=== PATIENT | male | born 1955 | race Caucasian/White ===

== ENCOUNTER → 2019-12-30 10:43 | Outpatient (BNVA) | payer BC, SELFPAY | PROVIDERS: Family Provider Nurse Practitioner Family; PCP Family Medicine; Referring Provider Family Medicine; Visit Provider Family Medicine | DX: E78.2 Mixed hyperlipidemia (principal); I10 Essential (primary) hypertension; Z68.25 Body mass index [BMI] 25.0-25.9, adult | CPT/HCPCS: 80053; 80061; 85025 ==

== ENCOUNTER → 2021-01-13 12:31 | Outpatient (BNVA) | payer BC, SELFPAY | PROVIDERS: Family Provider Nurse Practitioner Family; PCP Family Medicine; Visit Provider Family Medicine | DX: Z00.00 Encounter for general adult medical examination without abnormal findings (principal); E78.2 Mixed hyperlipidemia; I10 Essential (primary) hypertension | CPT/HCPCS: 80053; 80061; 85025 ==

== ENCOUNTER 2021-07-21 09:40 | Outpatient (CLI) | payer BC, SELFPAY ==
--- NOTE | 2021-07-21 09:45 | USCV_ITS ---
Michele Pyle Age: 66 Gender: M : 1955 Exam Date: 07/21/2021 10:15 Ordering Phys: Amanuel Murillo MD Technologist: Anisha Carpenter Exam Location: [facility] – [place] Indication: RLE SWELLING HISTORY: Lower extremity swelling. PROCEDURES: Venous duplex imaging was performed in only the right lower extremity. The following venous structures were evaluated: common femoral vein, profunda vein, proximal portion of the greater saphenous vein, superficial femoral vein, and the popliteal vein. In addition, the posterior tibial and peroneal trunk were evaluated. Serial compression, augmentation maneuvers, and spectral Doppler flow evaluation were performed. FINDINGS: No evidence of DVT seen in any vessel visualized at this time. CONCLUSIONS No evidence of right lower extremity DVT. Kurt Serrano MD (Electronically Signed) Final Date: 21 July 2021 11:43 S
== END 2021-07-21 09:41 | disposition home or self-care (01) ==
LOC: RAD 09:46
PROVIDERS: PCP Family Medicine; Visit Provider Family Medicine
DX: M79.89 Other specified soft tissue disorders (principal); M17.11 Unilateral primary osteoarthritis, right knee
CPT/HCPCS: 85025; 85651; 86140; 93971

== ENCOUNTER → 2021-08-05 09:31 | Outpatient (BNVA) | payer BC, SELFPAY | PROVIDERS: PCP Family Medicine; Visit Provider Family Medicine | DX: M17.11 Unilateral primary osteoarthritis, right knee (principal) | CPT/HCPCS: 84550; 85651; 86140 ==

== ENCOUNTER → 2022-02-22 10:31 | Outpatient (BNVA) | payer MEDICARE, SELFPAY | PROVIDERS: PCP Family Medicine; Visit Provider Emergency Medicine | DX: R50.9 Fever, unspecified (principal); U07.1 COVID-19; J12.82 Pneumonia due to coronavirus disease 2019 | CPT/HCPCS: 87426 ==

== ENCOUNTER → 2023-01-19 10:44 | Outpatient (BNVA) | payer MEDICARE, SELFPAY | PROVIDERS: PCP Family Medicine; Visit Provider Family Medicine | DX: I10 Essential (primary) hypertension (principal) | CPT/HCPCS: 80053; 85025 ==

== ENCOUNTER → 2024-08-06 12:29 | Outpatient (BNVA) | payer MEDICARE, SELFPAY | PROVIDERS: PCP Family Medicine; Visit Provider Family Medicine | DX: I10 Essential (primary) hypertension (principal); E78.2 Mixed hyperlipidemia; J01.30 Acute sphenoidal sinusitis, unspecified | CPT/HCPCS: 80053; 80061; 85025 ==

== ENCOUNTER 2024-10-02 06:52 | Outpatient (CLI) | payer MEDICARE, OTHER, SELFPAY ==
--- NOTE | 2024-10-02 07:15 | MR_ITS ---
WS: [id number] MRI BRAIN WITHOUT CONTRAST HISTORY: continued severe left side headache and elevated blood press COMPARISON: None available. TECHNIQUE: Diffusion imaging, multiplanar T1, T2 and FLAIR imaging obtained. Normal diffusion imaging. No acute infarct. Moderate symmetric volume loss and small vessel ischemic disease. T2 and FLAIR signal hyperintensities in the subcortical and periventricular white matter. No prior infarct. There is also volume loss in the cerebellum. No remote infarct. Ventricles and extra-axial spaces are normal. No inferior displacement of cerebellar tonsils. The sella turcica and pituitary gland are unremarkable. Dural venous sinuses and chinik of [place] demonstrate no abnormality on this unenhanced studies. Paranasal sinuses: Clear. Mastoid air cells: Normal. Calvarium and scalp: Intact. MR/MR head wo con* [id number] IMPRESSION: 1. No acute infarct or remote infarct. 2. Moderate volume loss and small vessel disease. 3. No prior hemorrhage.
== END 2024-10-02 06:53 | disposition home or self-care (01) ==
LOC: RAD 06:54
PROVIDERS: PCP Family Medicine; Visit Provider Family Medicine
DX: G50.0 Trigeminal neuralgia (principal); I10 Essential (primary) hypertension; G31.89 Other specified degenerative diseases of nervous system; I67.82 Cerebral ischemia
CPT/HCPCS: 70551

== ENCOUNTER 2025-04-24 08:03 | Emergency (ER) | payer MEDICARE, OTHER, SELFPAY ==
[2025-04-24 08:10] VITALS: BP 170/92; PULSE 76; RESP 16; TEMP 36.9; O2SAT 96; BMI 26.6
--- NOTE | 2025-04-24 08:44 | ECG_ITS ---
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 Measurements Intervals [place] Rate: 89 P: 68 AL: 130 QRS: 66 QRSD: 98 T: 68 QT: 314 QTc: 383 Interpretive Statements SINUS RHYTHM WITH FREQUENT VENTRICULAR PREMATURE COMPLEXES POSSIBLE LEFT ATRIAL ENLARGEMENT [-0.1mV P-WAVE IN V1/V2] NONSPECIFIC T-WAVE ABNORMALITY ABNORMAL RHYTHM ECG Electronically Signed On 04-24-2025 08:51:31 CDT by Nikhil Jacobsen M.D. [email or web address]
--- NOTE | 2025-04-24 08:44 | XRR_ITS ---
PROCEDURE INFORMATION: Exam: XR Chest Exam date and time: 04/24/2025 8:51 AM Age: 69 years old Clinical indication: Other: Syncope TECHNIQUE: Imaging protocol: Radiologic exam of the chest. Views: 1 view. COMPARISON: No relevant prior studies available. FINDINGS: Lungs: Patchy airspace disease in the right lower and left mid lung zones. Pleural spaces: Unremarkable. No pleural effusion. No pneumothorax. Heart/Mediastinum: Unremarkable. No cardiomegaly. Bones/joints: Unremarkable. XR/XR chest 1V portable [id number] IMPRESSION: Patchy airspace disease in the right lower and left mid lung zones. Suspected multifocal pneumonia. Correlate clinically.
--- NOTE | 2025-04-24 09:04 | W.ED.SYNCOPE ---
HPI - Syncope General: Chief Complaint: Syncope Stated Complaint: loss of cons (swallowed diesel) Time Seen by Provider: 04/24/25 08:23 History of Present Illness: 69-year-old male presents emergency room stating while working on some machinery last night he was trying to suction fuel through alignment with his mouth. He aspirated some of the diesel fuel. He coughed and spidered states that it took his breath away . This morning he has cough and shortness of breath. He has been a little bit dizzy. Cough has been nonproductive. No hemoptysis. Associated symptoms: Deny abdominal pain, chest pain or fever(s) Related Data Previous Rx's ?Medication ?Instructions ?Recorded lisinopril 40 mg tablet See Rx Instructions .Route 09/27/24 .COMPLEX #180 tabs amlodipine 5 mg tablet 5 mg PO BID #180 tabs 10/01/24 gabapentin 100 mg capsule 200 mg (2 x 100 mg) PO TID PRN 03/07/25 trigeminal/facial nerve pain #180 caps hydrocodone 5 mg-acetaminophen 325 1 tab PO Q12H PRN pain 30 days #60 03/07/25 mg tablet tabs albuterol sulfate 90 mcg/actuation 2 inh inhalation Q4H PRN shortness 04/24/25 aerosol inhaler of breath or wheezing #18 grams amoxicillin 875 mg-potassium 1 tab PO BID #14 tabs 04/24/25 clavulanate 125 mg tablet Allergies Allergy/AdvReac Type Severity Reaction Status Date / Time No Known Allergies Allergy Verified 04/30/25 09:37 Review of Systems Const: Denies: fever(s) or chills Card: Denies: chest pain Resp: Reports: dyspnea and non-productive cough GI: Denies: abdominal pain : Denies: dysuria, urinary frequency or urinary urgency Musc: Denies: neck pain or back pain Skin/Breast: Denies: rash PFSH ED PFSH: Medical History Osteoarthritis of right knee Hypertension Mixed hyperlipidemia Social History Smoking and tobacco/nicotine status: never used tobacco/nicotine Alcohol intake: current Alcohol intake frequency: holidays/special occasions only Substance/Drug Use: never Physical Exam Const: COMMON NORMALS: no acute distress GENERAL APPEARANCE: cooperative and comfortable ORIENTATION/CONSCIOUSNESS: Yes awake, Yes oriented to person, Yes oriented to place and Yes oriented to time HENMT: COMMON NORMALS: normocephalic, atraumatic and hearing grossly normal bilaterally HEAD & SCALP: normocephalic and atraumatic Resp: COMMON NORMALS: normal respiratory effort, No retractions and No use of accessory muscles AUSCULTATION: rhonchi Cardio: COMMON NORMALS: regular rate, regular rhythm and No murmurs present (Cardio) RATE: regular rate RHYTHM: regular rhythm GI: COMMON NORMALS: Soft to palpation and No hepatosplenomegaly present AUSCULTATION: Yes normoactive bowel sounds PALPATION: Yes Soft to palpation, No Tenderness to palpation present (GI), No Guarding due to palpation present (GI) and Yes No hepatosplenomegaly present Extremity: COMMON NORMALS: normal to inspection, capillary refill normal, no clubbing, cyanosis or edema, no calf tenderness and no pedal edema Neuro: SENSORIUM/ORIENTATION: Yes oriented to person, Yes oriented to place and Yes oriented to time Skin: COMMON NORMALS: no rashes or lesions noted GENERAL SKIN EXAM: no rashes or lesions noted Course Vital Signs: Vital signs: Vital Signs Temperature 98.4 F 04/24/25 08:10 Pulse Rate 89 04/24/25 10:34 Respiratory Rate 16 04/24/25 10:34 Blood Pressure 108/69 04/24/25 10:34 Pulse Oximetry 93 04/24/25 10:34 Oxygen Delivery Me thod Room Air 04/24/25 10:31 MDM - Syncope Medical Decision Making Patient has EKG findings combined with his history suggestive of pneumonia suspect this is a chemical pneumonitis pneumonitis some aspiration. I suggested to him we placed him on observation. He prefers to go home he is otherwise well his oxygen saturations are at the lower end of normal but he still maintaining them well we will start him on Augmentin as well as albuterol to use as needed patient reports that he has a O2 sat monitor at home. He should continue to monitor this if his sats are consistently below 92% while at rest he needs to return to the emergency room if he develops fever or worsening shortness of breath or productive cough he needs to be seen again in the emergency room. Encourage patient to be seen by his primary care doctor within a week to have a repeat chest x-ray. Medical Records I reviewed the patient's medical records. Lab Data I reviewed the patient's lab results. 04/24/25 09:01 04/24/25 09:01 Radiology Impressions Chest X-Ray 04/24/25 08:44 IMPRESSION: Patchy airspace disease in the right lower and left mid lung zones. Suspected multifocal pneumonia. Correlate clinically. Laboratory Results WBC 27.60 10^3/uL (3.29-11.43) H 04/24/25 09:01 RBC 5.37 10^6/uL (3.85-5.65) 04/24/25 09:01 Hgb 16.00 g/dL (11.27-16.99) 04/24/25 09: Hct 46.8 % (37-53) 04/24/25 09: MCV 87.2 fl (82-101) 04/24/25 09: MCH 29.8 pg (27-33) 04/24/25 09: MCHC 34.2 g/dL (30-55) 04/24/25 09:01 RDW 14.2 % (12.1-15.1) 04/24/25 09:01 Plt Count 283 10^3/cmm (157-399) 04/24/25 09:01 MPV 10.7 fL (7.4-10.4) H 04/24/25 09:01 Neut % (Auto) 86.1 % 04/24/25 09: Lymph % (Auto) 5.5 % 04/24/25 09: [place] % (Auto) 7.5 % 04/24/25 09: Eos % (Auto) 0.0 % 04/24/25 09:01 Baso % (Auto) 0.4 % 04/24/25 09:01 Neut # (Auto) 23.77 10^3/uL (1.8-7.7) H 04/24/25 09:01 Lymph # (Auto) 1.5 10^3/uL (0.8-4.8) 04/24/25 09:01 [place] # (Auto) 2.1 10^3/uL (0.2-0.9) H 04/24/25 09:01 Eos # (Auto) 0.0 10^3/uL (0.0-0.8) 04/24/25 09:01 Baso # (Auto) 0.1 10^3/uL (0.0-0.1) 04/24/25 09:01 Nucleated RBC % (auto) 0 % 04/24/25 09:01 Nucleated RBCs # 0.0 /100WBC 04/24/25 09:01 Sodium 136 mmol/L (136-145) 04/24/25 09:01 Potassium 4.9 mmol/L (3.5-5.1) 04/24/25 09:01 Chloride 99 mmol/L (98-107) 04/24/25 09:01 Carbon Dioxide 22 mmol/L (22-29) 04/24/25 09:01 Anion Gap 19.9 (5-19) H 04/24/25 09:01 BUN 16 mg/dL (8-23) 04/24/25 09:01 Creatinine 1.0 mg/dL (0.7-1.2) 04/24/25 09: GFR Calculation 73.9 mL/min (90-130) L 04/24/25 09:01 Glucose 124 mg/dL (65-115) H 04/24/25 09:01 Calculated Osmolality 285 mOsm/kg (285-295) 04/24/25 09:01 Calcium 9.4 mg/dL (8.5-10.5) 04/24/25 09:01 Total Bilirubin 0.9 mg/dL (0.15-1.2) 04/24/25 09:01 AST 19 U/L (0-40) 04/24/25 09: ALT 25 U/L (0-41) 04/24/25 09:01 Alkaline Phosphatase 132 U/L (40-130) H 04/24/25 09:01 Troponin T Baseline 13 ng/L (0-15) 04/24/25 09:01 Total Protein 6.7 g/dL (6.6-8.7) 04/24/25 09:01 Albumin 4.5 g/dL (3.5-5.2) 04/24/25 09:01 Globulin 2.2 g/dL (1.3-4.6) 04/24/25 09:01 All radiology interpretation(s) finalized by discharge Discharge Plan Discharge Patient Disposition: Home Clinical Impression: Chemical pneumonitis Aspiration pneumonia Qualifiers: Aspiration pneumonia type: unspecified Laterality: right Lung location: middle lobe of lung Qualified Code(s): J69.0 - Pneumonitis due to inhalation of food and vomit Condition: Stable Prescriptions: New albuterol sulfate 90 mcg/actuation HFA aerosol inhaler 2 inh INHALATION Q4H PRN (Reason: shortness of breath or wheezing) Qty: 18 0RF amoxicillin-pot clavulanate 875-125 mg tablet 1 tab PO BID Qty: 14 0RF No Action amlodipine 5 mg tablet 5 mg PO BID Qty: 180 3RF lisinopril 40 mg tablet See Rx Instructions .ROUTE .COMPLEX Qty: 180 3RF Dose Instruction: TAKE 1 TABLET BY MOUTH TWICE DAILY Rx Instructions: TAKE 1 TABLET BY MOUTH TWICE DAILY gabapentin 100 mg capsule 200 mg PO TID PRN (Reason: trigeminal/facial nerve pain) Qty: 180 1RF hydrocodone-acetaminophen 5-325 mg tablet 1 tab PO Q12H PRN (Reason: pain) 30 Days Qty: 60 0RF Discharge Orders: Discharge ED (Routine); Ordered 04/24/25 Ordered By: Mo Jalloh Referrals: Amanuel Murillo MD [Primary Care Provider, Family Practice] Discharge Diet: Usual diet Discharge Activity: Increase activity as tolerated Patient Instructions: Opioid Safety, Pain Management, Patient Portal & Clemencia Instructions Activity Restrictions/Additional Instructions: Thank you for choosing [facility] for your healthcare needs today. It is very important that you follow up as instructed or that you return to the Emergency Department should you have concerns or if your condition changes or worsens in any way. Emergency department visits are focused on emergent conditions, in some cases you may require further evaluation on an outpatient basis. You were seen in the emergency room after inhaling diesel fuel last night. Chest x-ray shows aspiration pneumonia. Your white count is markedly elevated this is likely from the chemical exposure. We had discussed possibly staying you it preferred to be treated as an outpatient. Monitor your oxygen saturations at home as we discussed if it is consistently below 90 you should be reevaluated or if you have marked worsening of your breathing. Recommend that you start oral steroids this evening and also start oral antibiotics. Return to the emergency room if you have any worsening of your condition. If you do feel like things are improving, and do not need to return to the ER, you should still have a follow-up chest x-ray with your primary care doctor next week. (Please note that included in your discharge packet is information concerning opioid safety and pain management. This information is given to all patients were discharged from the ER regardless of their discharge diagnosis or the medicines they usually take or are prescribed.) Print Language: Uzbek Coding Level of Care Code ED Fws Faculty Assistant for Aracely Castanon
[2025-04-24 09:06] LABS: Hematocrit 46.8 % (37-53); Hemoglobin 16.00 g/dL (11.27-16.99); Mean Corpuscular HGB Conc 34.2 g/dL (30-55); Mean Corpuscular Hemoglobin 29.8 pg (27-33); Mean Corpuscular Volume 87.2 fl (82-101); Nucleated Red Blood Cells % 0 %; Platelet Count 283 10^3/cmm (157-399); Red Blood Count 5.37 10^6/uL (3.85-5.65); White Blood Count 27.60 10^3/uL (3.29-11.43)
[2025-04-24 09:25] LABS: Troponin(5th) Baseline 13 ng/L (0-15)
[2025-04-24 09:26] LABS: Alanine Aminotransferase 25 U/L (0-41); Albumin Level 4.5 g/dL (3.5-5.2); Alkaline Phosphatase 132 U/L (40-130); Aspartate Amino Transferase 19 U/L (0-40); Blood Urea Nitrogen 16 mg/dL (8-23); Calcium 9.4 mg/dL (8.5-10.5); Carbon Dioxide 22 mmol/L (22-29); Chloride 99 mmol/L (98-107); Creatinine Clr Calc Pharmacy 66.3223; Globulin 2.2 g/dL (1.3-4.6); Glucose 124 mg/dL (65-115); Osmolality Calculated 285 mOsm/kg (285-295); Sodium 136 mmol/L (136-145); Total Protein 6.7 g/dL (6.6-8.7)
[2025-04-24 09:32] LABS: Anion Gap 19.9 (5-19); Potassium 4.9 mmol/L (3.5-5.1)
[2025-04-24 10:31] VITALS: PULSE 91; RESP 16; O2SAT 93
[2025-04-24 10:34] VITALS: BP 108/69; PULSE 89; RESP 16; O2SAT 93
== END 2025-04-24 10:41 | disposition home or self-care (01) ==
PROVIDERS: Emergency Provider Family Medicine; PCP Family Medicine
DX: T52.0X1A Toxic effect of petroleum products, accidental (unintentional), initial encounter (principal); J68.0 Bronchitis and pneumonitis due to chemicals, gases, fumes and vapors; J69.0 Pneumonitis due to inhalation of food and vomit; I10 Essential (primary) hypertension; E78.2 Mixed hyperlipidemia; X58.XXXA Exposure to other specified factors, initial encounter
CPT/HCPCS: 36415; 71045; 80053; 84484; 85025; 93005; 94640; 96372; 99285; J1100; J9999

== ENCOUNTER 2025-04-30 10:19 | Outpatient (CLI) | payer MEDICARE, OTHER, SELFPAY ==
--- NOTE | 2025-04-30 10:47 | XR_ITS ---
WS: [id number] PA and lateral chest, 04/30/2025 Clinical Data: f/u from ER/ aspiration/chemical pneumonitis Comparison: Portable chest, 04/24/2025 Findings: There is a patchy right middle lobe opacity which probably represents pneumonia. No nodules, masses or effusions are seen. The heart is normal. The aortic arch and descending thoracic aorta show mild tortuosity. The pulmonary vascularity is normal. No pneumothorax is present. XR/XR chest 2V* [id number] Impression: Right middle lobe opacity most consistent with pneumonia.
== END 2025-04-30 10:20 | disposition home or self-care (01) ==
PROVIDERS: PCP Family Medicine; Visit Provider Family Medicine
DX: D72.829 Elevated white blood cell count, unspecified (principal); J69.0 Pneumonitis due to inhalation of food and vomit; J68.0 Bronchitis and pneumonitis due to chemicals, gases, fumes and vapors
CPT/HCPCS: 71046; 85025

== ENCOUNTER 2025-05-26 08:06 | Outpatient (CLI) | payer MEDICARE, OTHER, SELFPAY ==
--- NOTE | 2025-05-26 08:10 | XR_ITS ---
WS: [id number] Chest 2 views, 05/26/2025 Clinical Data: J69.0 - Pneumonitis due to inhalation of food and vomit Comparison: Two-view chest, 04/30/2025 Findings: The patchy right middle lobe opacity has not changed in the last month. No nodules or effusions are seen. The heart is normal. The pulmonary vascularity is not increased. No pneumonia or pneumothorax is seen. The aortic arch and descending thoracic aorta show no change. XR/XR chest 2V* [id number] Impression: 1. No change in patchy right middle lobe opacity. 2. Recommend CT chest.
== END 2025-05-26 08:07 | disposition home or self-care (01) ==
LOC: RAD 08:07
PROVIDERS: PCP Family Medicine; Visit Provider Family Medicine
DX: J69.0 Pneumonitis due to inhalation of food and vomit (principal); D72.829 Elevated white blood cell count, unspecified
CPT/HCPCS: 71046; 85025

== ENCOUNTER 2025-05-29 15:40 | Outpatient (CLI) | payer MEDICARE, OTHER, SELFPAY ==
--- NOTE | 2025-05-29 16:00 | CTR_ITS ---
PROCEDURE INFORMATION: Exam: CT Chest Without Contrast; Diagnostic Exam date and time: 05/29/2025 4:21 PM Age: 70 years old Clinical indication: Follow up cxr, abnormal findings; Additional info: R91.8 - other nonspecific abnormal finding of lung field TECHNIQUE: Imaging protocol: Diagnostic computed tomography of the chest without contrast. Radiation optimization: All CT scans at this facility use at least one of these dose optimization techniques: automated exposure control; mA and/or kV adjustment per patient size (includes targeted exams where dose is matched to clinical indication); or iterative reconstruction. COMPARISON: CR XR chest 2V* [id number] 05/26/2025 8:27 AM and radiograph of the chest from 08/2024 RADIATION DOSE METRICS: Total DLP (mGy-cm): 319.14 FINDINGS: Thyroid: There are bilateral thyroid cysts or nodules. The largest within the left lobe of the thyroid measures at least 21 mm. Lungs: As was defined on the radiograph there is masslike consolidation within the lateral segment of the right middle lobe measuring 36 x 30 mm. There are components of air bronchograms present. Regions of low-density fluid or necrotic component may be present. The left lung is clear. Pleural spaces: Unremarkable. No pneumothorax. No pleural effusion. Heart: Unremarkable. No cardiomegaly. No pericardial effusion. Lymph nodes: Unremarkable. No enlarged lymph nodes. Vasculature: The thoracic aorta is normal in caliber with minimal marginal atherosclerotic plaque. Liver: There is a subserosal lesion within the left hepatic lobe measuring 24 x 22 mm. This is indeterminate in etiology. Bones/joints: There is no acute osseous abnormality appreciated. Small probable bone island is present in the dorsal aspect of the T5 vertebral body and within the T4 spinous process. Soft tissues: There is mild bilateral retroareolar gynecomastia. CT/CT chest wo con [id number] IMPRESSION: 1. Masslike consolidation within the lateral segment of the right middle lobe. This is favored to be infectious in etiology however given its persistence as compared to prior imaging follow-up PET-CT is recommended. 2. Indeterminate lesion in the subserosal position of the left hepatic lobe. Follow-up multiphase CT of the abdomen is recommended for further evaluation. 3. Multiple thyroid cysts or nodules. Follow-up thyroid ultrasound is recommended if not previously performed. COMMENTS: Consistent with the [employer]'s Incidental Findings Committee white paper (J Am Reshma Radiol 2015): In patients aged 35 years and older with an incidental thyroid nodule equal to or greater than 1.[address], MRI or extrathyroidal US, further evaluation with dedicated thyroid US is recommended for patients with normal life expectancy and without comorbidities. For smaller nodules without suspicious features, no further evaluation or follow up is recommended.
== END 2025-05-29 15:41 | disposition home or self-care (01) ==
LOC: RAD 15:41
PROVIDERS: PCP Family Medicine; Visit Provider Family Medicine
DX: R91.8 Other nonspecific abnormal finding of lung field (principal); E07.9 Disorder of thyroid, unspecified; J98.4 Other disorders of lung; N62 Hypertrophy of breast
CPT/HCPCS: 71250

== ENCOUNTER 2025-06-30 12:25 | Outpatient (CLI) | payer MEDICARE, OTHER, SELFPAY ==
--- NOTE | 2025-06-30 12:30 | CT_ITS ---
WS: [id number] CT chest wo con [id number] HISTORY: Follow-up consolidation RIGHT middle lobe. TECHNIQUE: Axial imaging performed through the thorax. Coronal and sagittal reformats are submitted. All CT scans at [facility] use at least one of these dose optimization techniques: automated exposure control; mA and/or kV adjustment per patient size (includes targeted exams where dose is matched to clinical indication); or iterative reconstruction. CONTRAST: None DLP: 317.89 mGy.cm COMPARISON: 05/29/2025 Lungs and central airway: Reidentified is a consolidation in the RIGHT middle lobe which abuts the posterior fissure. There is a slight cavitary component. Consolidation measures 2.6 x 3.8 x 3.0 cm and has moderately improved in size since 05/29/2025. There is a small amount of adjacent groundglass attenuation surrounding this nodule. No additional pulmonary mass or nodule. Pleura: Normal. No pleural effusion. Heart and pericardium: Very mild cardiomegaly. No pericardial effusion. Mediastinum and brady: No mediastinum or hilar adenopathy. Vessels: Mild atherosclerosis aorta. Normal size pulmonary artery. Chest wall and lower neck: RIGHT thyroid nodule 1.7 cm. Mild gynecomastia. Upper abdomen: Low-attenuation region in the RIGHT lobe of the liver. Please refer to the CT report of the abdomen from 06/30/2025. Osseous structures: Sclerotic focus consistent with a bone island at T4 and T5. CT/CT chest wo con [id number] IMPRESSION: 1. Consolidation noted in the RIGHT middle lobe has moderately improved in siz e since 05/29/2025. Consolidation now measures 2.6 x 3.8 x 3.0 cm and there is a slight central cavitary component. Recommend continued close follow-up. This i s likely an improving pneumonia. Underlying neoplasm needs to be considered and excluded. Recommend close follow-up imaging to resolution. 2. No mediastinal or hilar adenopathy. 3. Mild atherosclerosis aorta.
--- NOTE | 2025-06-30 12:41 | CT_ITS ---
WS: [id number] CT ABDOMEN AND PELVIS WITH CONTRAST HISTORY: Hepatomegaly, not elsewhere classified TECHNIQUE: Imaging performed of the abdomen and pelvis with IV contrast. Multi phase imaging of the abdomen. Coronal and sagittal reformats are submitted. All CT scans at [facility] use at least one of these dose optimization techniques: automated exposure control; mA and/or kV adjustment per patient size (includes targeted exams where dose is matched to clinical indication); or iterative reconstruction. IV CONTRAST: Omnipaque 350; 100 mL IV. Oral contrast: No DLP: 909.70 mGy.cm COMPARISON: 05/29/2025 Lower thorax: Reidentified is a consolidation in the RIGHT middle lobe at the lung bases. Partially visualized but does appear slightly improved compared to 05/29/2025. Heart is normal size. No hiatal hernia. Liver/biliary system: Normal size liver. Subtle area of enhancement in the RIGHT lobe of the liver measures 1.5 x 1.8 cm. On the delayed imaging there is complete filling and consistent with a hemangioma. Focal fatty sparing along the falciform ligament. Normal portal vein and intrahepatic ducts. Gallbladder: Normal. No gallstones or wall thickening. No pericholecystic fluid. Pancreas: Normal size pancreas and pancreatic duct. No adjacent inflammation. Spleen: Normal size spleen. No mass or infarct. Adrenal glands: Normal. Right kidney: Normal. Left kidney: Normal. Aorta: Mild atherosclerosis with no aneurysm. Lymphadenopathy: None. Free fluid: None. GI tract: No obstruction. No colitis. Mild diverticular disease with no acute diverticulitis. Normal appendix. Abdominal wall: Fat containing umbilical hernia. Tiny umbilical hernia. Pelvis: No free fluid or adenopathy within the pelvis. Prostate gland is enlarged and very heterogeneous encroaching into the urinary bladder. Inguinal canals are patent bilaterally containing fat only. Bones: Unremarkable. CT/CT abdomen pelvis w con* [id number] IMPRESSION: 1. Hemangioma RIGHT lobe of the liver measures 1.5 x 1.8 cm. 2. Focal fatty sparing along the falciform ligament. 3. Mild atherosclerosis aorta. No aneurysm. 4. Consolidation in the RIGHT middle lobe is partially visualized but does asra ear slightly improved as compared to 05/29/2025. 5. Markedly enlarged heterogeneous prostate gland. 6. No GI tract obstruction or acute diverticulitis.
[2025-06-30] MEDS: iohexol 350 mg/mL 500 mL Btl (per mL) IV (12:54)
== END 2025-06-30 12:26 | disposition home or self-care (01) ==
LOC: RAD 12:26
PROVIDERS: PCP Family Medicine; Visit Provider Family Medicine
DX: R91.8 Other nonspecific abnormal finding of lung field (principal); D18.09 Hemangioma of other sites; K57.90 Diverticulosis of intestine, part unspecified, without perforation or abscess without bleeding; I70.0 Atherosclerosis of aorta; N42.9 Disorder of prostate, unspecified
CPT/HCPCS: 71250; 74177